=== PATIENT | male | born 1950 | race Hispanic/Latino ===

== ENCOUNTER 2016-11-28 08:01 | Outpatient (CLI) | payer MEDICARE ==
--- NOTE | 2016-11-28 16:04 | Magnetic Resonance Report ---
MRI LUMBAR SPINE WITHOUT CONTRAST: 11/28/16 CLINICAL: Back pain and severe spondylosis. TECHNIQUE: Sagittal and axial T1 and T2, and sagittal STIR sequences on a 1.5 [place] magnet. FINDINGS: Normal vertebral body height and alignment. However, straightening of the lumbar spine with loss of the normal lordosis. Disc space narrowing with loss of the disc space at L2-3 and L3-4. Less severe disc space narrowing at L4-5. Anterior osteophytes and posterior osteophytes from L2-3 through L4-5. The marrow signal is normal except for Modic endplate changes T12-L1 and L3-4. The conus medullaris is normal and terminates T12-L1. L1-2: Intact. L2-3: Degeneration of the disc and loss of the disc space. Large anterior and smaller posterior osteophytes. Moderate sized broad-based central disc protrusion and osteophyte producing mild central canal stenosis. Mild bilateral facet hypertrophy. Moderate right neural foraminal stenosis produced by bone and disc. Mild left neural foraminal stenosis. L3-4: Degeneration of the disc and loss of the disc space. Large anterior and smaller posterior osteophytes. A moderate-sized broad-based central disc protrusion. Minimal central canal stenosis. Mild bilateral facet hypertrophy. Moderate bilateral neural foraminal narrowing, greater on the left than the right. L4-5: Degeneration of the disc and loss of the disc space. Small anterior and posterior osteophytes. A moderate-sized broad-based central disc protrusion. Minimal central canal stenosis. Moderate bilateral neural foraminal narrowing, left greater than right. L5-S1: A moderate size central and right paracentral disc protrusion with extension into the right neural foramen. Marked narrowing of the right neural foramen. Posterior displacement of the right S1 nerve root. IMPRESSION: Multilevel degenerative disc disease as described above. Multilevel lateral neural foraminal narrowing, greatest on the right at L5-S1. Multilevel disc protrusions.
--- NOTE | 2016-11-29 09:19 | Cat Scan Report ---
CT LUMBAR SPINE WITHOUT CONTRAST: 11/28/16 08:01:00 CLINICAL: Severe spondylosis. Back pain. TECHNIQUE: Volumetric acquisition and 1.25-mm axial scan reconstructions without contrast. Sagittal and coronal reformats were performed. FINDINGS: Straightening of the lumbar spine. Grade I L4-5 retrolisthesis. The rest of the bodies are normal alignment. Normal vertebral body height. Disc space narrowing with vacuum disc phenomenon at L2-3, L3-4 and L4-5. Prominent anterior and posterior osteophytes from L2-3 through L4-5. L1-2:Intact. L2-3:Degeneration of the disc and circumferential bulge of the disc with circumferential osteophytes. A prominent central osteophyte produces mild central spinal canal stenosis. Moderate right neural foraminal stenosis secondary to osteophytes. L3-4:Degeneration of the disc and mild circumferential bulge of the disc with circumferential osteophytes. Mild to moderate right neural foraminal stenosis and mild left neural foraminal stenosis secondary to osteophytes. A right paracentral posterior osteophyte narrows the right lateral recess. L4-5:Degeneration of the disc and mild circumferential bulge of the disc. Circumferential osteophytes. A prominent focal central disc-osteophyte produces moderate narrowing of the spinal canal. Moderate bilateral neural foraminal stenosis secondary to osteophytes. L5-S1:Left L5-S1 sacralization. The disc space is preserved. Mild circumferential bulge of the disc and a broad-based right paracentral disc protrusion is seen mass effect on the right S1 nerve root. IMPRESSION: Multilevel degenerative disc disease as described above.
== END 2016-11-28 08:02 | disposition home or self-care (01) ==
LOC: SPVIMAG 08:01
PROVIDERS: ATTEND General Practice
DX: M48.06 Spinal stenosis, lumbar region (principal); M47.896 Other spondylosis, lumbar region; M51.36 Other intervertebral disc degeneration, lumbar region; M51.26 Other intervertebral disc displacement, lumbar region; M40.46 Postural lordosis, lumbar region; M25.78 Osteophyte, vertebrae
CPT/HCPCS: 72131; 72148

== ENCOUNTER 2018-11-26 13:36 | Emergency (ER) | payer MEDICARE ==
--- NOTE | 2018-11-26 16:29 | Cat Scan Report ---
PROCEDURE: CT HEAD/BRAIN WO CON TECHNIQUE: Computerized tomography of the head was performed without contrast material. CT DOSE LENGTH PRODUCT: 920.5 mGycm HISTORY: pain, fall COMPARISONS: None . FINDINGS: There is mild generalized cerebral cortical atrophy. There is no parenchymal hemorrhage or extra-axia l fluid collection. There is no mass or mass effect. There is no acute territorial infarct. There are scattered areas of decreased attenuation in the subcortical and periventricular white matter, likely due to chronic microvascular ischemic disease. The ventricles are midline. The subarachnoid spaces a nd basilar cisterns are clear. There is no skull fracture. The paranasal sinuses and mastoid air cell s are clear. IMPRESSION: No acute intracranial abnormality. Chronic microvascular ischemic changes in the subcortical and periventricular white matter . This document is electronically signed by Bella Dumont MD., November 26 2018 04:27:16 PM ET
--- NOTE | 2018-11-26 16:35 | Cat Scan Report ---
PROCEDURE: CT CERVICAL SPINE WO CON TECHNIQUE: Computerized tomography of the cervical spine was performed from the skull base to T1 wit hout contrast material. CT DOSE LENGTH PRODUCT: 511.4 mGycm HISTORY: pain, fall COMPARISONS: None . FINDINGS: No acute fracture or dislocation. Vertebral body heights are maintained. The prevertebral soft tissue s are normal. C1-2: Mild hypertrophic changes of the articulation . C2-3: Mild intervertebral disc space narrowing with associated anterior and uncovertebral osteophyte formation. . C3-4: Intervertebral disc space narrowing with anterior and uncovertebral osteophyte formation. Mode rate bilateral facet arthropathy. Mild to moderate bilateral foraminal narrowing . C4-5: Intervertebral disc space narrowing with anterior and uncovertebral osteophyte formation. Mode rate bilateral facet arthropathy. Mild to moderate bilateral foraminal narrowing . C5-6: Intervertebral disc space narrowing with anterior and uncovertebral osteophyte formation. Disc osteophyte complex causes mild central stenosis. Moderate facet arthropathy and mild to moderate nathan ateral foraminal stenosis. . C6-7: Intervertebral disc space narrowing with anterior and uncovertebral osteophyte formation. Mode rate facet arthropathy. No central stenosis. Mild bilateral foraminal narrowing . C7-T1: Intervertebral disc space narrowing with anterior and lateral osteophyte formation. No centra l or foraminal stenosis . Fractures: None . Other: No additional findings . IMPRESSION: Degenerative changes of the cervical spine without acute fracture or dislocation. This document is electronically signed by Bella Dumont MD., November 26 2018 04:32:59 PM ET
--- NOTE | 2018-11-26 18:15 | Emergency Department Report ---
ED General Adult HPI - General Chief complaint: Extremity Injury, Upper Stated complaint: FALL Time Seen by Provider: 11/26/18 14:27 Source: EMS Mode of arrival: Ambulatory Limitations: No Limitations - History of Present Illness Initial comments: 68-year-old male with history of alcohol abuse sent to ER following a fall at home. Triage note reports patient complaining of right shoulder pain. However, pt actually reports neck pain and a knot that is closer to his lower neck than shoulder. Patient reports he had 2 beers earlier today. States he drinks daily. -: This afternoon Location: neck, right, upper extremity Severity scale (0 -10): 9 Associated Symptoms: denies: chest pain, headaches, nausea/vomiting Treatments Prior to Arrival: none - Related Data Home Medications Medication Instructions Recorded Confirmed Last Taken Ipratropium/Albuterol Sulfate 1 ampul IH Q6HR PRN 08/14/16 08/14/16 1 Day Ago [DUONEB *Not for PRN Use*] ~08/13/16 1 Previous Rx's Medication Instructions Recorded Last Taken Type Famotidine [Pepcid] 20 mg PO BID #14 tablet 06/21/16 1 Day Ago Rx ~08/13/16 20 Folic Acid [Folvite] 1 mg PO DAILY #30 tablet 06/21/16 1 Day Ago Rx ~08/13/16 1mg Multivitamin Tab [Multiple Vitamin 1 each PO DAILY #30 tablet 06/21/16 1 Day Ago Rx TAB (Theragran)] ~08/13/16 1 Nicotine [Habitrol] 14 mg TD QDAY #21 patch 06/21/16 1 Day Ago Rx ~08/13/16 Thiamine [Vitamin B-1] 100 mg PO QDAY #30 tablet 06/21/16 1 Day Ago Rx ~08/13/16 100mg amLODIPine [Norvasc] 10 mg PO DAILY #30 tablet 06/21/16 1 Day Ago Rx ~08/13/16 10 mg cloNIDine [Catapres] 0.1 mg PO Q12HR #30 tablet 06/21/16 1 Day Ago Rx ~08/13/16 0.1 Carvedilol [Coreg] 6.25 mg PO BID #60 tablet 08/16/16 Unknown Rx oxyCODONE /ACETAMINOPHEN [Percocet 1 tab PO Q4H PRN #12 tablet 02/23/17 Unknown Rx 5/325 mg] Allergies Allergy/AdvReac Type Severity Reaction Status Date / Time No Known Allergies Allergy Unverified 12/31/14 16:03 ED Review of Systems ROS: Stated complaint: FALL Other details as noted in HPI Comment: All other systems reviewed and negative Musculoskeletal: as per HPI ED Past Medical Hx - Past Medical History Previous Medical History?: Yes Hx Hypertension: Yes Hx CVA: No Hx Heart Attack/AMI: No Hx Congestive Heart Failure: No Hx Diabetes: No Hx Deep Vein Thrombosis: No Hx Pulmonary Embolism: No Hx GERD: No Hx Liver Disease: No Hx Renal Disease: No Hx of Cancer: No Hx Sickle Cell Disease: No Hx Arthritis: No Hx Headaches / Migraines: No Hx Seizures: No Hx Kidney Stones: No Hx Psychiatric Treatment: No Hx Asthma: No Hx COPD: No Hx Tuberculosis: No Hx Dementia: No Hx HIV: No - Surgical History Past Surgical History?: No Hx Coronary Stent: No Hx Open Heart Surgery: No Hx Pacemaker: No Hx Internal Defibrillator: No Hx Cholecystectomy: No Hx Appendectomy: No Hx Breast Surgery: No - Social History Smoking Status: Current Every Day Smoker Substance Use Type: Alcohol - Medications Home Medications: Home Medications Medication Instructions Recorded Confirmed Last Taken Type Famotidine [Pepcid] 20 mg PO BID #14 tablet 06/21/16 08/14/16 1 Day Ago Rx ~08/13/16 20 Folic Acid [Folvite] 1 mg PO DAILY #30 tablet 06/21/16 08/14/16 1 Day Ago Rx ~08/13/16 1mg Multivitamin Tab [Multiple Vitamin 1 each PO DAILY #30 tablet 06/21/16 08/14/16 1 Day Ago Rx TAB (Theragran)] ~08/13/16 1 Nicotine [Habitrol] 14 mg TD QDAY #21 patch 06/21/16 08/14/16 1 Day Ago Rx ~08/13/16 Thiamine [Vitamin B-1] 100 mg PO QDAY #30 tablet 06/21/16 08/14/16 1 Day Ago Rx ~08/13/16 100mg amLODIPine [Norvasc] 10 mg PO DAILY #30 tablet 06/21/16 08/14/16 1 Day Ago Rx ~08/13/16 10 mg cloNIDine [Catapres] 0.1 mg PO Q12HR #30 tablet 06/21/16 08/14/16 1 Day Ago Rx ~08/13/16 0.1 Ipratropium/Albuterol Sulfate 1 ampul IH Q6HR PRN 08/14/16 08/14/16 1 Day Ago History [DUONEB *Not for PRN Use*] ~08/13/16 1 Carvedilol [Coreg] 6.25 mg PO BID #60 tablet 08/16/16 Unknown Rx oxyCODONE /ACETAMINOPHEN [Percocet 1 tab PO Q4H PRN #12 tablet 08/16/16 Unknown Rx 5/325 mg] ED Physical Exam - General Limitations: No Limitations General appearance: alert, in no apparent distress, appears intoxicated - Head Head exam: Present: atraumatic, normocephalic - Eye Eye exam: Present: normal appearance - ENT ENT exam: Present: mucous membranes moist - Neck Neck exam: Present: tenderness (right paraspinal) - Respiratory Respiratory exam: Present: normal lung sounds bilaterally. Absent: respiratory distress - Cardiovascular Cardiovascular Exam: Present: regular rate, normal rhythm - GI/Abdominal GI/Abdominal exam: Present: soft. Absent: distended, tenderness - Extremities Exam Extremities exam: Present: other (no deformity noted to right shoulder, nontender to palpation, ROM intact) - Neurological Exam Neurological exam: Present: alert, oriented X3 - Psychiatric Psychiatric exam: Present: normal affect, normal mood - Skin Skin exam: Present: warm, dry, intact, normal color. Absent: rash ED Course Vital Signs 11/26/18 11/26/18 11/26/18 13:50 13:57 14:00 Temperature 98.3 F Pulse Rate 73 69 Respiratory 16 28 H Rate Blood Pressure 158/88 160/87 Blood Pressure 158/88 [Right] O2 Sat by Pulse 95 98 96 Oximetry 11/26/18 11/26/18 11/26/18 14:15 14:30 14:45 Temperature Pulse Rate 66 67 79 Respiratory 16 14 11 L Rate Blood Pressure 160/87 167/83 167/83 Blood Pressure [Right] O2 Sat by Pulse 95 95 96 Oximetry 11/26/18 11/26/18 11/26/18 15:00 15:01 15:13 Temperature Pulse Rate 65 Respiratory 17 18 Rate Blood Pressure 134/114 Blood Pressure 132/66 [Right] O2 Sat by Pulse 93 100 Oximetry 11/26/18 11/26/18 11/26/18 16:49 18:18 18:25 Temperature Pulse Rate 61 85 85 Respiratory 18 18 16 Rate Blood Pressure Blood Pressure 145/68 142/78 142/66 [Right] O2 Sat by Pulse 100 100 100 Oximetry 11/26/18 11/26/18 11/26/18 18:30 19:33 22:00 Temperature 98 F Pulse Rate 67 79 73 Respiratory 18 16 13 Rate Blood Pressure 176/92 Blood Pressure 142/66 176/86 [Right] O2 Sat by Pulse 100 98 95 Oximetry 11/26/18 11/27/18 11/27/18 23:07 01:01 03:00 Temperature Pulse Rate 79 68 71 Respiratory 17 15 Rate Blood Pressure 161/93 178/87 162/81 Blood Pressure [Right] O2 Sat by Pulse 96 97 Oximetry 11/27/18 11/27/18 11/27/18 04:00 06:52 08:27 Temperature 98 F Pulse Rate 69 69 83 Respiratory 23 16 18 Rate Blood Pressure 162/75 Blood Pressure 149/74 163/73 [Right] O2 Sat by Pulse 96 100 96 Oximetry - Reevaluation(s) Reevaluation #1: 11/26/18 18:22 CT scan normal. Pt was given a food tray here in ED which he did eat. Upon discharge, pt called his nephew to come and pick him up. After getting off of the phone, pt now states that he would like alcohol rehab. Labs sent, mental health consulted. ED Medical Decision Making - Lab Data Result diagrams: 11/26/18 19:19 11/26/18 19:19 - Medical Decision Making Pt is medically clear for mental health evaluation. Requesting detox. ETOH level 110. Remainder of labs unremarkable. CT Head and c-spine from earlier are also unremarkable. Will dispo per psych. - Differential Diagnosis fracture, muscle strain, intracranial abnormality Critical care attestation.: If time is entered above; I have spent that time in minutes in the direct care o f this critically ill patient, excluding procedure time. ED Disposition Clinical Impression: Fall, Acute cervical myofascial strain, Alcohol abuse Disposition: [id number]/TX-[id number] ANOTHER TYPE HLTHCARE Is pt being admited?: No Condition: Stable Instructions: Muscle Strain (ED), Abuse of Alcohol (ED) Referrals: CHARITY MAJANO MD [Primary Care Provider] - 3-5 Days
[2018-11-26] MEDS ORDERED: ATIVAN PO PRN ×2 (18:43)
[2018-11-26 19:30] LABS: Basophils # (Auto) 0.1 K/mm3 (0.0-0.1); Basophils % (Auto) 1.3 % (0.0-1.8); Eosinophils # (Auto) 0.1 K/mm3 (0.0-0.4); Hematocrit 42.5 % (35.5-45.6); Lymphocytes # (Auto) 1.4 K/mm3 (1.2-5.4); Lymphocytes % (Auto) 34.4 % (13.4-35.0); Mean Corpuscular HGB Conc 35 % (32-34); Mean Corpuscular Volume 100 fl (84-94); Monocytes # (Auto) 0.5 K/mm3 (0.0-0.8); Platelet Count 161 K/mm3 (140-440); Red Blood Count 4.23 M/mm3 (3.65-5.03); Red Cell Distribution Width 13.2 % (13.2-15.2)
[2018-11-26 19:45] LABS: BUN/Creatinine Ratio 10; Blood Urea Nitrogen 6 mg/dL (9-20)
[2018-11-26 19:46] LABS: Amphetamine Screen,Urine PRESUMPTIVE NEGATIVE; Benzodiazepines Screen,Urine PRESUMPTIVE NEGATIVE; Cannabinoid Screen,Urine PRESUMPTIVE NEGATIVE; Cocaine Screen,Urine PRESUMPTIVE NEGATIVE; Methadone Screen,Urine PRESUMPTIVE NEGATIVE; Opiate Screen,Urine PRESUMPTIVE NEGATIVE
[2018-11-26 19:46] LABS: Alanine Aminotransferase 94 units/L (7-56); Albumin 3.9 g/dL (3.9-5); Bilirubin,Direct 0.2 mg/dL (0-0.2); Calcium 8.9 mg/dL (8.4-10.2); Hemolysis Index 5
[2018-11-26] MEDS ORDERED: NORVASC PO ONE (22:51)
[2018-11-27 08:28] VITALS: BP 163/73
--- NOTE | 2018-11-27 10:29 | Progress Note ---
Subjective - Reason for Consult Consult date: 11/27/18 Reason for consult: Psychiatry Follow-up - Chief Complaint Chief complaint: 68-year-old white male who presented to the ER for ETOH. Today the patient was calm and cooperative during the assessment. He stated that he drink (etoh) because he enjoys it. He stated that he drink often. He acknowledged being a patient in rehab services. He is aware of the implications of excessive alcohol consumption (etoh). He is willing to try rehab services again. He denies SI/HI's and AVH's. He denies being depressed when asked. He denies erratic sleep and a poor appetite. He denies recreational drug use. Mental Status Exam - Vital signs Last Vital Signs Temp 98 F 11/27/18 06:52 Pulse 83 11/27/18 08:27 Resp 18 11/27/18 08:27 BP 163/73 11/27/18 08:27 Pulse Ox 96 11/27/18 08:27 - Exam Narrative exam: MSE: Appearance: calm, cooperative Behavior: regular eye contact Speech: regular rate and tone Mood: "okay" Affect: congruent to mood Thought Process: circumstantial Thought Content: denies SI/HI's and AVH's Motor Activity: sitting up in bed Cognition: A/O x3 Insight: fair Judgment: fair Assessment and Plan Impression: Alcohol Use DO. Today the patient was calm and cooperative during the assessment. DDx: R/O Mood DO Recommendation/Plan: Discussed the importance to abstain from alcohol consumption (etoh). Dispo: The patient was accepted at [facility] for inpatient rehab services. Will staff with Dr Michelle Boo.
--- NOTE | 2018-11-27 10:37 | Consultation ---
History of Present Illness - Reason for Consult Consult date: 11/27/18 Reason for consult: Mental Health Evaluation Requesting physician: ROSENDO CLAIRE - Chief Complaint Chief complaint: "I am okay" - History of Present Psychiatric Illness 68-year-old white male who presented to the ER for ETOH. Today the patient was calm and cooperative during the assessment. He stated that he drink (etoh) because he enjoys it. He stated that he drink often. He acknowledged being a patient in rehab services. He is aware of the implications of excessive alcohol consumption (etoh). He is willing to try rehab services again. He denies SI/HI's and AVH's. He denies being depressed when asked. He denies erratic sleep and a poor appetite. He denies recreational drug use. Medications and Allergies Allergies Allergy/AdvReac Type Severity Reaction Status Date / Time No Known Allergies Allergy Unverified 12/31/14 16:03 Home Medications Medication Instructions Recorded Confirmed Last Taken Type Famotidine [Pepcid] 20 mg PO BID #14 tablet 06/21/16 08/14/16 1 Day Ago Rx ~08/13/16 20 Folic Acid [Folvite] 1 mg PO DAILY #30 tablet 06/21/16 08/14/16 1 Day Ago Rx ~08/13/16 1mg Multivitamin Tab [Multiple Vitamin 1 each PO DAILY #30 tablet 06/21/16 08/14/16 1 Day Ago Rx TAB (Theragran)] ~08/13/16 1 Nicotine [Habitrol] 14 mg TD QDAY #21 patch 06/21/16 08/14/16 1 Day Ago Rx ~08/13/16 Thiamine [Vitamin B-1] 100 mg PO QDAY #30 tablet 06/21/16 08/14/16 1 Day Ago Rx ~08/13/16 100mg amLODIPine [Norvasc] 10 mg PO DAILY #30 tablet 06/21/16 08/14/16 1 Day Ago Rx ~08/13/16 10 mg cloNIDine [Catapres] 0.1 mg PO Q12HR #30 tablet 06/21/16 08/14/16 1 Day Ago Rx ~08/13/16 0.1 Ipratropium/Albuterol Sulfate 1 ampul IH Q6HR PRN 08/14/16 08/14/16 1 Day Ago History [DUONEB *Not for PRN Use*] ~08/13/16 1 Carvedilol [Coreg] 6.25 mg PO BID #60 tablet 08/16/16 Unknown Rx oxyCODONE /ACETAMINOPHEN [Percocet 1 tab PO Q4H PRN #12 tablet 08/16/16 Unknown Rx 5/325 mg] Past psychiatric history - Past Medical History Past Medical History: hypertension Past Surgical History: No surgical history - past Psychiatric treatment and history psychiatric treatment history: Hx of alcoholism. Denies a fam psy hx. - Social History Social history: Lives alone Mental Status Exam - Vital signs Last Vital Signs Temp 98 F 11/27/18 06:52 Pulse 83 11/27/18 08:27 Resp 18 11/27/18 08:27 BP 163/73 11/27/18 08:27 Pulse Ox 96 11/27/18 08:27 - Exam Narrative exam: MSE: Appearance: calm, cooperative Behavior: regular eye contact Speech: regular rate and tone Mood: "okay" Affect: congruent to mood Thought Process: circumstantial Thought Content: denies SI/HI's and AVH's Motor Activity: sitting up in bed Cognition: A/O x3 Insight: fair Judgment: fair Results Result Diagrams: 11/26/18 19:19 11/26/18 19:19 Abnormal lab results 11/26/18 11/26/18 11/26/18 Range/Units 19:19 19:19 19:19 WBC 4.1 L (4.5-11.0) K/mm3 MCV 100 H (84-94) fl MCH 35 H (28-32) pg MCHC 35 H (32-34) % [place] % (Auto) 11.0 H (0.0-7.3) % Sodium 136 L (137-145) mmol/L Chloride 97.0 L (98-107) mmol/L BUN 6 L (9-20) mg/dL Creatinine 0.6 L (0.8-1.5) mg/dL AST 151 H (5-40) units/L ALT 94 H (7-56) units/L Salicylates < 0.3 L (2.8-20.0) mg/dL Acetaminophen (10.0-30.0) ug/mL Plasma/Serum Alcohol (0-0.07) % 11/26/18 11/26/18 Range/Units 19:19 19:19 WBC (4.5-11.0) K/mm3 MCV (84-94) fl MCH (28-32) pg MCHC (32-34) % [place] % (Auto) (0.0-7.3) % Sodium (137-145) mmol/L Chloride (98-107) mmol/L BUN (9-20) mg/dL Creatinine (0.8-1.5) mg/dL AST (5-40) units/L ALT (7-56) units/L Salicylates (2.8-20.0) mg/dL Acetaminophen < 5.0 L (10.0-30.0) ug/mL Plasma/Serum Alcohol 0.11 H (0-0.07) % All other labs normal. Assessment and Plan Assessment and plan: Impression: Alcohol Use DO. Today the patient was calm and cooperative during the assessment. DDx: R/O Mood DO Recommendation/Plan: Discussed the importance to abstain from alcohol cons umption (etoh). Dispo: The patient was accepted at [facility] for inpatient rehab services. Will staff with Dr Michelle Boo.
== END 2018-11-27 08:40 | disposition other institution (70) ==
LOC: ED 13:36
DX: S16.1XXA Strain of muscle, fascia and tendon at neck level, initial encounter (principal); I10 Essential (primary) hypertension; F17.200 Nicotine dependence, unspecified, uncomplicated; F10.10 Alcohol abuse, uncomplicated; Z79.899 Other long term (current) drug therapy; W18.30XA Fall on same level, unspecified, initial encounter; Y93.89 Activity, other specified; Y92.099 Unspecified place in other non-institutional residence as the place of occurrence of the external cause; Y99.8 Other external cause status
CPT/HCPCS: 36415; 70450; 72125; 80048; 80076; 80307; 85025; 99285; G0480; 80320